=== PATIENT | female | born 1975 ===

== ENCOUNTER → 2021-01-10 10:42 | Outpatient (BNVA) | payer OTHER, SELFPAY | PROVIDERS: PCP Internal Medicine; Visit Provider Hospitalist | DX: J45.40 Moderate persistent asthma, uncomplicated (principal); R07.9 Chest pain, unspecified | CPT/HCPCS: 99202 ==

== ENCOUNTER → 2021-02-28 14:53 | Outpatient (BNVA) | payer OTHER, SELFPAY | PROVIDERS: PCP Internal Medicine; Visit Provider Hospitalist | DX: J45.40 Moderate persistent asthma, uncomplicated (principal); R07.9 Chest pain, unspecified | CPT/HCPCS: 99212 ==

== ENCOUNTER 2021-07-01 13:31 | Outpatient (REF) | payer OTHER, SELFPAY ==
[2021-07-01 15:40] LABS: MANUAL DIFF FLAG NO
[2021-07-01 15:47] LABS: Basophils Percent Auto 0.2 % (0-2); Eosinophils Absolute Auto 0.3 X10*3/uL (0.0-0.4); Eosinophils Percent Auto 2.6 % (0-4); Hematocrit 32.4 % (37-47); Hemoglobin 9.3 g/dl (12.0-16.0); Imm Gran Abs Auto 0.03 X10*3/uL (0.00-0.03); Imm Gran Pct Auto 0.3 % (0.0-0.4); Lymphocytes Absolute Auto 2.5 X10*3/uL (1.2-4.9); Lymphocytes Percent Auto 26.2 % (20-40); Mean Corpuscular HGB Conc 28.7 g/dl (31.0-35.0); Mean Corpuscular Hemoglobin 21.4 pg (27.0-33.0); Mean Corpuscular Volume 74.7 fL (80-98); Mean Platelet Volume 9.5 fL (9.4-12.3); Monocytes Absolute Auto 0.4 X10*3/uL (0.1-1.2); Monocytes Percent Auto 4.2 % (2-11); Neutrophils Absolute Auto 6.3 X10*3/uL (2.0-8.3); Neutrophils Percent Auto 66.5 % (45-73); Platelet Count 516 X10*3/uL (160-400); Red Blood Count 4.34 X10*6/uL (4.20-5.50); Red Cell Distribution Width 16.2 % (11.0-16.0); White Blood Count 9.5 X10*3/uL (4.8-10.8)
[2021-07-01 15:56] LABS: D Dimer < 200 NG/ML
[2021-07-01 16:11] LABS: Anion Gap 13 (12-20); Blood Urea Nitrogen 11 mg/dL (9-16); Calcium 9.1 mg/dL (8.4-10.2); Carbon Dioxide 20 mmol/L (22-29); Chloride 110 mmol/L (96-108); Estimated Glomerular Filt Rate > 60; Glucose Random 94 mg/dL (60-115); Potassium 4.2 mmol/L (3.3-5.1); Sodium 139 mmol/L (135-145)
[2021-07-01 16:45] LABS: Erythrocyte Sedimentation Rate 23 MM/HR (0-20)
[2021-07-03 13:06] LABS: Anti Nuclear Antibody Screen NEGATIVE (NEGATIVE)
[2021-07-04 00:47] LABS: Cyclic Citrullinated Peptide <16 UNITS
[2021-07-09 04:07] LABS: Angiotensin Converting Enzyme 15 U/L (9-67)
== END 2021-07-01 13:32 | disposition home or self-care (01) ==
LOC: HO.LAB 13:31
PROVIDERS: PCP Internal Medicine; Visit Provider Hospitalist
DX: R07.9 Chest pain, unspecified (principal); J45.40 Moderate persistent asthma, uncomplicated; R09.1 Pleurisy
CPT/HCPCS: 36415; 80048; 82164; 82785; 85025; 85379; 85652; 86003; 86038; 86039; 86200; 99212

== ENCOUNTER → 2021-08-14 13:29 | Outpatient (BNVA) | payer OTHER, SELFPAY | PROVIDERS: PCP Internal Medicine; Visit Provider Hospitalist | DX: J45.40 Moderate persistent asthma, uncomplicated (principal); R09.1 Pleurisy; R07.9 Chest pain, unspecified | CPT/HCPCS: 99212 ==

== ENCOUNTER 2021-09-29 10:33 | Outpatient (REF) | payer OTHER, SELFPAY | END 2021-09-29 10:34 | disposition home or self-care (01) | LOC: HO.MDS 10:33 | PROVIDERS: PCP Internal Medicine; Visit Provider Hospitalist | DX: J45.50 Severe persistent asthma, uncomplicated (principal) | CPT/HCPCS: 96372; J2357 ==

== ENCOUNTER → 2021-11-13 13:35 | Outpatient (BNVA) | payer OTHER, SELFPAY | PROVIDERS: PCP Internal Medicine; Visit Provider Hospitalist | DX: J45.40 Moderate persistent asthma, uncomplicated (principal); R07.9 Chest pain, unspecified; Z79.899 Other long term (current) drug therapy | CPT/HCPCS: 99212 ==

== ENCOUNTER → 2022-08-21 09:04 | Outpatient (BNVA) | payer OTHER, SELFPAY | PROVIDERS: PCP Internal Medicine; Visit Provider Hospitalist | DX: J45.41 Moderate persistent asthma with (acute) exacerbation (principal); J40 Bronchitis, not specified as acute or chronic; R05.9 Cough, unspecified; R07.9 Chest pain, unspecified | CPT/HCPCS: 99212 ==

== ENCOUNTER 2023-03-30 09:53 | Outpatient (REF) | payer OTHER, SELFPAY ==
[2023-03-30 11:12] LABS: MANUAL DIFF FLAG NO
[2023-03-30 11:45] LABS: Basophils Percent Auto 0.5 % (0-2); Eosinophils Absolute Auto 0.3 X10*3/uL (0.0-0.4); Eosinophils Percent Auto 3.2 % (0-4); Hematocrit 32.6 % (37.0-47.0); Hemoglobin 8.7 g/dl (12.0-16.0); Imm Gran Abs Auto 0.03 X10*3/uL (0.00-0.03); Imm Gran Pct Auto 0.4 % (0.0-0.4); Lymphocytes Absolute Auto 2.4 X10*3/uL (1.2-4.9); Lymphocytes Percent Auto 29.7 % (20-40); Mean Corpuscular HGB Conc 26.7 g/dl (31.0-35.0); Mean Corpuscular Hemoglobin 18.3 pg (27.0-33.0); Mean Corpuscular Volume 68.6 fL (80.0-98.0); Mean Platelet Volume 9.7 fL (9.4-12.3); Monocytes Absolute Auto 0.5 X10*3/uL (0.1-1.2); Monocytes Percent Auto 6.5 % (2-11); Neutrophils Absolute Auto 4.8 x10*3/uL (2.0-8.3); Neutrophils Percent Auto 59.7 % (45-73); Platelet Count 565 X10*3/uL (160-400); Red Blood Count 4.75 X10*6/uL (4.20-5.50); Red Cell Distribution Width 17.7 % (11.0-16.0)
[2023-03-30 12:25] LABS: Erythrocyte Sedimentation Rate 14 MM/HR (0-20)
[2023-03-30 12:46] LABS: Anion Gap 15 (12-20); Blood Urea Nitrogen 9 mg/dL (9-16); Calcium 9.8 mg/dL (8.4-10.2); Carbon Dioxide 21 mmol/L (22-29); Chloride 107 mmol/L (96-108); Estimated Glomerular Filt Rate > 60; Glucose Random 80 mg/dL (60-115); Potassium 4.5 mmol/L (3.3-5.1); Sodium 138 mmol/L (135-145)
[2023-04-02 03:09] LABS: Immunoglobulin E 395 kU/L (<OR=114)
== END 2023-03-30 09:54 | disposition home or self-care (01) ==
LOC: HO.LAB 09:53
PROVIDERS: PCP Internal Medicine; Visit Provider Hospitalist
DX: J45.41 Moderate persistent asthma with (acute) exacerbation (principal); J40 Bronchitis, not specified as acute or chronic; R05.9 Cough, unspecified; R07.9 Chest pain, unspecified
CPT/HCPCS: 36415; 80048; 82785; 85025; 85652; 99212

== ENCOUNTER 2023-05-17 10:18 | Outpatient (REF) | payer OTHER, SELFPAY ==
--- NOTE | 2023-05-17 10:55 | PFT_ITS ---
FLOWS: 1. FEV1 71% of predicted at 1.85 L. 2. FVC 66% of predicted at 2.11 L. 3. FEV1 to FVC ratio of 0.88. 4. No bronchodilator response. LUNG VOLUMES: 1. Total lung capacity 69% of predicted at 3.21 L. 2. Residual volume 71% of predicted at 1.11 L. 3. Slow vital capacity 68% of predicted at 2.09 L. 4. Expiratory reserve volume 18% of predicted at 0.18 L. 5. Diffusion capacity is mildly decreased, diffusion capacity corrects to normal after adjustment for alveolar ventilation. IMPRESSION: Moderate restrictive ventilatory defect with no bronchodilator response. Decreased expiratory reserve volume suggests extrathoracic restriction, likely secondary to abdominal obesity. MD FRANCESCO Ribeiro/MODL / [phone]
== END 2023-05-17 10:19 | disposition home or self-care (01) ==
LOC: HO.RESP 10:18
PROVIDERS: PCP Internal Medicine; Visit Provider Hospitalist
DX: J45.41 Moderate persistent asthma with (acute) exacerbation (principal)
CPT/HCPCS: 94010; 94727; 94729

== ENCOUNTER → 2023-05-17 10:55 | Outpatient (BNV) | payer OTHER, SELFPAY | PROVIDERS: PCP Internal Medicine; Visit Provider Internal Medicine Pulmonary Disease | DX: J45.909 Unspecified asthma, uncomplicated (principal) | CPT/HCPCS: 94060; 94727; 94729 ==

== ENCOUNTER 2023-09-10 11:04 | Outpatient (AMB) | payer OTHER, SELFPAY ==
--- NOTE | 2023-09-10 11:12 | MHC.OFFVIS ---
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 Apparently she had been doing well on the current respiratory regimen. However, started developing worsening shortness of breath in addition to cough along with wheezing. Finally she started developing some chest discomfort substernal in nature and was evaluated at the [facility] ER. There she was COVID tested. His test came back negative and she was discharged from the ER without any intervention. The chest pain seems to be doing a little better though she still has it. She denies any trauma to the chest. She does have reflux symptoms. We did talk about the importance of the reflux diet. In the meantime will do blood work in addition to a chest x-ray to further address his chest discomfort and her ongoing asthma symptoms. 03/30/2023 the patient is here for a pulmonary follow-up visit. The patient still has worsening respiratory symptoms. She has a hard time leaving her house because of significant asthma asthma and allergy symptoms. The patient has been using her rescue inhaler multiple times a day and has been using her maintenance medicine although she ran out. The patient during the last visit also need breathing treatments because of significant wheezing. We had talked about biologic therapy. The patient is a great candidate for Xolair with an elevated IgE level and significant allergies. However after taking a dose or 2 the patient then did not follow up with it. Will try to get her back on Xolair but hopefully with home administration which she can do her own injections at home and have better compliance. Will try to minimize the need for prednisone. Will have her undergo blood work today in order to get her back in Xolair. The patient does have significant allergies specially to trees and other environmental exposures. Will go ahead and make sure she has all her medications available in optimize her respiratory therapy to [facility] to make sure that she is taking her medications with the best compliance. The patient also needs an EpiPen. She had a food allergy reaction that ended up in going to the ER. The patient did not need appy at that point. Will make sure she has an EpiPen 09/10/2023 the patient is here for a pulmonary follow-up visit. The patient has been having significant asthma symptoms. Positive sick contacts. The patient has been having to use her nebulized therapy 4 to 6 times a day. for some reason the patient was not receiving her Xolair injections and also she had not had any refills on her medications for her asthma so therefore she had been relying on her rescue inhaler. I will make sure to send all her refills to the pharmacy. Also spoke to our nurse so we can look into why she has not been getting the Xolair. The patient has pretty severe asthma and she understands that she needs to continue with good adherence on therapy otherwise she is going to require additional prednisone. She will require prednisone at this time of send a taper. If the patient is no better she is to call the office for an earlier assessment otherwise follow-up in 3-4 months. [facility] Medical History (Updated 09/12/23 @ 20:21 by Sanchez Bueno MD) COVID-19 Pleuritis Chest pain Asthma Social History Patient Tobacco Use Status: Never used Tobacco Review of Systems Const Denies fever(s) and Denies night sweats ENT Denies change in voice, Denies lip swelling, Denies mouth pain, Reports nasal congestion, Reports nasal discharge, Reports sore throat and Denies tongue swelling Card Reports chest pain, Reports dyspnea and Reports dyspnea on exertion Resp Reports chest congestion, Reports cough, Reports pain on inspiration, Reports pain with cough, Reports dyspnea, Reports dyspnea on exertion and Reports wheezing GI Denies abdominal pain and Reports heartburn Musc Denies no additional complaints Neuro Denies Neuro-related abnormal movements Psych Denies no additional complaints Stephan/Lymph Denies easy bleeding and Denies lymphadenopathy Aller/Immun Denies lip swelling, Denies tongue swelling and Reports wheezing Physical Exam Vital Signs: Last Vital Signs Pulse 95 09/10/23 11:13 BP 132/70 09/10/23 11:13 Pulse Ox 100 09/10/23 11:13 Oxygen Delivery Method Room Air 09/10/23 11:13 BMI result Body Mass Index 32.9 Const General: alert Neck Neck: Yes normal visual inspection, Yes full ROM and Yes no lymphadenopathy Chest Chest palpation & inspection: abnormal inspection of the chest, localized rib tenderness with anteroposterior compression and tenderness rib ( patient has left-sided discomfort which appeared to be intercostal a day level of the mid chest area) Resp Auscultation: rhonchi, wheezes and diminished lung sounds Cardio Rate: regular rate Rhythm: regular rhythm Heart sounds: S1 normal heart sound present and S2 normal heart sound present GI Palpation (GI): Soft to palpation and nontender Auscultation: normal bowel sounds Skin General skin exam: rashes and/or lesions noted Assessment & Plan Assessment & Plan (1) Asthma: Code(s): J45.909 - Unspecified asthma, uncomplicated Qualifiers: Asthma complication type: with acute exacerbation Asthma persistence: persistent Asthma severity: severe Qualified Code(s): J45.51 - Severe persistent asthma with (acute) exacerbation (2) Bronchitis: Code(s): J40 - Bronchitis, not specified as acute or chronic (3) Cough: Code(s): R05.9 - Cough, unspecified Qualifiers: Cough type: chronic Qualified Code(s): R05.3 - Chronic cough (4) Chest pain: Comment: musculoskeletal discomfort versus hyperparesthesias on the right side. His symptoms are reproducible Code(s): R07.9 - Chest pain, unspecified Qualifiers: Chest pain type: unspecified Qualified Code(s): R07.9 - Chest pain, unspecified Plan Continue Nebs every 4 hours as needed start Prednisone taper start Doxycycline restart Trelegy 200 daily ELTON/singulair continue Claritin restart Xolair, home Benzonates as needed F/U 3-4 months Orders: Orders XR chest 2V 09/10/23 J45.909 - Unspecified asthma, uncomplicated Medications: New prednisone PO daily; Take 6 tabs daily x 3 days, then 5 tabs x 3 days, then 4 tabs x 3 days, then 3 tabs x 3 days, then 2 tabs daily x 3 days, then 1 tab x 3 days to complete. 18 days 63 tabs 0RF benzonatate 200 mg PO BID 30 days PRN 60 caps 4RF cough doxycycline hyclate 100 mg PO BID 10 days 20 caps 0RF Refilled albuterol sulfate 2.5 mg (3 mL) inhalation Q6H 30 days PRN 180 mL 11RF shortness of breath or wheezing albuterol sulfate 90 mcg/actuation (Ventolin HFA) 2 puffs inhalation QID 30 days PRN 18 grams 11RF shortness of breath or wheezing wushlymxzmk-clmcjsdzw-hcufsubd 200-62.5-25 mcg (Trelegy Ellipta) 1 inh inhalation DAILY 30 days 60 ea 12RF montelukast 10 mg PO DAILY 30 days 30 tabs 11RF J45.909 - Unspecified asthma, uncomplicated Coding Level of Care Code Est Pt Level 4 (23169) Diagnoses Severe persistent asthma with acute exacerbation J45.51 Asthma complication type: with acute exacerbation Asthma persistence: persistent Asthma severity: severe Bronchitis J40 Chronic cough R05.3 Cough type: chronic Chest pain, unspecified type R07.9 Chest pain type: unspecified Time Spent (min) 17
[2023-09-10 11:13] VITALS: BP 132/70; PULSE 95; O2SAT 100; BMI 32.9
== END 2023-09-10 12:01 | disposition home or self-care (01) ==
PROVIDERS: PCP Internal Medicine; Visit Provider Hospitalist
DX: J45.51 Severe persistent asthma with (acute) exacerbation (principal); J40 Bronchitis, not specified as acute or chronic; R05.3 Chronic cough; R07.9 Chest pain, unspecified
CPT/HCPCS: 99214

== ENCOUNTER → 2023-09-10 11:04 | Outpatient (BNVA) | payer OTHER, SELFPAY | PROVIDERS: PCP Internal Medicine; Visit Provider Hospitalist | DX: J45.51 Severe persistent asthma with (acute) exacerbation (principal); J40 Bronchitis, not specified as acute or chronic; R05.3 Chronic cough; R07.9 Chest pain, unspecified | CPT/HCPCS: 99212 ==

== ENCOUNTER 2024-05-12 10:23 | Outpatient (AMB) | payer OTHER, SELFPAY ==
--- NOTE | 2024-05-12 10:41 | MHC.OFFVIS ---
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 Apparently she had been doing well on the current respiratory regimen. However, started developing worsening shortness of breath in addition to cough along with wheezing. Finally she started developing some chest discomfort substernal in nature and was evaluated at the [facility] ER. There she was COVID tested. His test came back negative and she was discharged from the ER without any intervention. The chest pain seems to be doing a little better though she still has it. She denies any trauma to the chest. She does have reflux symptoms. We did talk about the importance of the reflux diet. In the meantime will do blood work in addition to a chest x-ray to further address his chest discomfort and her ongoing asthma symptoms. 03/30/2023 the patient is here for a pulmonary follow-up visit. The patient still has worsening respiratory symptoms. She has a hard time leaving her house because of significant asthma asthma and allergy symptoms. The patient has been using her rescue inhaler multiple times a day and has been using her maintenance medicine although she ran out. The patient during the last visit also need breathing treatments because of significant wheezing. We had talked about biologic therapy. The patient is a great candidate for Xolair with an elevated IgE level and significant allergies. However after taking a dose or 2 the patient then did not follow up with it. Will try to get her back on Xolair but hopefully with home administration which she can do her own injections at home and have better compliance. Will try to minimize the need for prednisone. Will have her undergo blood work today in order to get her back in Xolair. The patient does have significant allergies specially to trees and other environmental exposures. Will go ahead and make sure she has all her medications available in optimize her respiratory therapy to [facility] to make sure that she is taking her medications with the best compliance. The patient also needs an EpiPen. She had a food allergy reaction that ended up in going to the ER. The patient did not need appy at that point. Will make sure she has an EpiPen 09/10/2023 the patient is here for a pulmonary follow-up visit. The patient has been having significant asthma symptoms. Positive sick contacts. The patient has been having to use her nebulized therapy 4 to 6 times a day. for some reason the patient was not receiving her Xolair injections and also she had not had any refills on her medications for her asthma so therefore she had been relying on her rescue inhaler. I will make sure to send all her refills to the pharmacy. Also spoke to our nurse so we can look into why she has not been getting the Xolair. The patient has pretty severe asthma and she understands that she needs to continue with good adherence on therapy otherwise she is going to require additional prednisone. She will require prednisone at this time of send a taper. If the patient is no better she is to call the office for an earlier assessment otherwise follow-up in 3-4 months. 05/12/2024 the patient is here for sick visit. She has been sick now for about a week with her asthma. Has had significant chest tightness and wheezing. She does not seem prednisone home she started taking it. Although she is still having significant difficulty breathing. She is coughing although difficult to expectorate. Moderate severity. On exam she does have significant wheezing. I did give her a breathing treatment in the office with only partial improvement. The patient did receive Solu-Medrol 125 mg IM x1. Hopefully the symptoms start subsided. I will make sure to send her antibiotics and prednisone to the pharmacy. She will continue to use the nebulizer every 4 hours. If her condition worsens she will need to get evaluated in the ER. However, if she is no better she needs to call the office. In the meantime she does continue with Xolair. Xolair injections have been helpful. Not clear if this is an infectious process. If this more allergic in maybe she has not responded completely to the Xolair we need to consider other potential biologic therapies. [facility] Medical History (Updated 09/12/23 @ 20:21 by Sanchez Bueno MD) COVID-19 Pleuritis Chest pain Asthma Social History Patient Tobacco Use Status: Never used Tobacco Review of Systems Const Denies fever(s) and Denies night sweats ENT Denies change in voice, Denies lip swelling, Denies mouth pain, Reports nasal congestion, Reports nasal discharge, Reports sore throat and Denies tongue swelling Card Reports chest pain, Reports dyspnea and Reports dyspnea on exertion Resp Reports chest congestion, Reports cough, Reports pain on inspiration, Reports pain with cough, Reports dyspnea, Reports dyspnea on exertion and Reports wheezing GI Denies abdominal pain and Reports heartburn Musc Denies no additional complaints Neuro Denies Neuro-related abnormal movements Psych Denies no additional complaints Stephan/Lymph Denies easy bleeding and Denies lymphadenopathy Aller/Immun Denies lip swelling, Denies tongue swelling and Reports wheezing Physical Exam Vital Signs: Last Vital Signs Pulse 94 05/12/24 10:42 Pulse Ox 99 05/12/24 10:42 Oxygen Delivery Method Room Air 05/12/24 10:42 BMI result Body Mass Index 32.1 Const General: alert Neck Neck: Yes normal visual inspection, Yes full ROM and Yes no lymphadenopathy Chest Chest palpation & inspection: abnormal inspection of the chest, localized rib tenderness with anteroposterior compression and tenderness rib ( patient has left-sided discomfort which appeared to be intercostal a day level of the mid chest area) Resp Effort & Inspection: prolonged expiratory phase Auscultation: rhonchi, wheezes and diminished lung sounds Cardio Rate: regular rate Rhythm: regular rhythm Heart sounds: S1 normal heart sound present and S2 normal heart sound present GI Palpation (GI): Soft to palpation and nontender Auscultation: normal bowel sounds Skin General skin exam: rashes and/or lesions noted Office Procedures Nebulizer Treatment Nebulizer Treatment [id number] RX initial, or Nebulizer Subsequent Treatment Office Meds methylprednisolone sod suc(PF) 125 mg/2 mL solution for injection Performing Provider: Sanchez Bueno MD Performing Location: [facility] Pul[facility]ology [facility] Administered by: Billie Montez LPN on 05/12/24 11:10 Dose Route Admin Location Dispensed Lot Number Expiration Date [facility] [employer] 125 mg IM R buttoc 2 ea [id number] 06/10/26 5075-4049-08 [employer] Comments: 1 injection of 125 mg given in R buttock ipratropium 0.5 mg-albuterol 3 mg (2.5 mg base)/3 mL nebulization soln Performing Provider: Sanchez Bueno MD Performing Location: [facility] Pul[facility] Administered by: Billie Montez LPN on 05/12/24 11:10 Dose Route Admin Location Dispensed Lot Number Expiration Date [facility] [employer] 3 mL inhalation 3 mL [id number] 02/07/26 [id number] [facility] Assessment & Plan Assessment & Plan (1) Asthma: Code(s): J45.909 - Unspecified asthma, uncomplicated Category: Medical Qualifiers: Asthma complication type: with acute exacerbation Asthma persistence: persistent Asthma severity: severe Qualified Code(s): J45.51 - Severe persistent asthma with (acute) exacerbation (2) Bronchitis: Code(s): J40 - Bronchitis, not specified as acute or chronic Category: Medical (3) Cough: Code(s): R05.9 - Cough, unspecified Category: Medical Qualifiers: Cough type: chronic Qualified Code(s): R05.3 - Chronic cough (4) Chest pain: Comment: musculoskeletal discomfort versus hyperparesthesias on the right side. His symptoms are reproducible Code(s): R07.9 - Chest pain, unspecified Category: Medical Qualifiers: Chest pain type: unspecified Qualified Code(s): R07.9 - Chest pain, unspecified Plan Continue Nebs every 4 hours as needed start Prednisone taper start Augmentin conitunue Trelegy 200 daily ELTON/singulair continue Claritin conitnue Xolair, home epipen Benzonates as needed F/U 3-4 months Orders: Orders AMB Methylprednisolone Sod Succ Injection 05/12/24 J45.51 - Severe persistent asthma with (acute) exacerbation AMB Nebulizer Treatment 05/12/24 J45.51 - Severe persistent asthma with (acute) exacerbation Medications: New prednisone PO daily; Take 6 tabs daily x 3 days, then 5 tabs x 3 days, then 4 tabs x 3 days, then 3 tabs x 3 days, then 2 tabs daily x 3 days, then 1 tab x 3 days to complete. 63 tabs 0RF 18 days amoxicillin-pot clavulanate 875-125 mg 1 tab PO BID 20 tabs 0RF 10 days Changed From Ventolin HFA 90 mcg/actuation (albuterol sulfate) 2 puffs inhalation Q6H PRN 18 ea 0RF for wheezing NS J45.909 - Unspecified asthma, uncomplicated To Ventolin HFA 90 mcg/actuation (albuterol sulfate) 2 puffs inhalation Q6H PRN 1 ea 11RF for wheezing 30 days NS J45.909 - Unspecified asthma, uncomplicated Refilled montelukast 10 mg PO DAILY 30 tabs 11RF 30 days J45.909 - Unspecified asthma, uncomplicated epinephrine (EpiPen 2-Ryan) for 2 doses 0.3 mg (0.3 mL) IM Q10M PRN 2 ea 6RF anaphylaxis 30 days J45.40 - Moderate persistent asthma, uncomplicated albuterol sulfate 2.5 mg (3 mL) inhalation Q6H PRN 180 mL 11RF shortness of breath or wheezing 30 days epybyrameow-xlptdmndw-iyjyymua 200-62.5-25 mcg (Trelegy Ellipta) 1 inh inhalation DAILY 60 ea 12RF 30 days Coding Level of Care Code Est Pt Level 4 (87164) Diagnoses Severe persistent asthma with acute exacerbation J45.51 Asthma complication type: with acute exacerbation Asthma persistence: persistent Asthma severity: severe Bronchitis J40 Chronic cough R05.3 Cough type: chronic Chest pain, unspecified type R07.9 Chest pain type: unspecified CPT Codes Nebulizer Treatment - Nebulizer Treatment, initial or subsequent: [id number]/[id number] RX initial, or Nebulizer Subsequent Treatment ([id number]) Time Spent (min) 17
[2024-05-12 10:42] VITALS: PULSE 94; O2SAT 99; BMI 32.1
== END 2024-05-12 11:06 | disposition home or self-care (01) ==
PROVIDERS: PCP Internal Medicine; Visit Provider Hospitalist
DX: J45.51 Severe persistent asthma with (acute) exacerbation (principal); J40 Bronchitis, not specified as acute or chronic; R05.3 Chronic cough; R07.9 Chest pain, unspecified
CPT/HCPCS: 99214

== ENCOUNTER → 2024-05-12 10:23 | Outpatient (BNVA) | payer OTHER, SELFPAY | PROVIDERS: PCP Internal Medicine; Visit Provider Hospitalist | DX: J45.51 Severe persistent asthma with (acute) exacerbation (principal); J40 Bronchitis, not specified as acute or chronic; R05.3 Chronic cough; R07.9 Chest pain, unspecified | CPT/HCPCS: 94640; 96372; 99212; J2919 ==

== ENCOUNTER 2024-08-25 10:22 | Outpatient (REF) | payer OTHER, SELFPAY ==
[2024-08-25 11:17] LABS: MANUAL DIFF FLAG NO
[2024-08-25 11:35] LABS: Basophils Absolute Auto 0.1 X10*3/uL (0.0-0.2); Basophils Percent Auto 0.6 % (0-2); Eosinophils Absolute Auto 0.7 X10*3/uL (0.0-0.4); Eosinophils Percent Auto 7.9 % (0-4); Hematocrit 35.3 % (37.0-47.0); Hemoglobin 9.8 g/dl (12.0-16.0); Imm Gran Abs Auto 0.02 X10*3/uL (0.00-0.03); Imm Gran Pct Auto 0.2 % (0.0-0.4); Lymphocytes Absolute Auto 2.3 X10*3/uL (1.2-4.9); Lymphocytes Percent Auto 26.8 % (20-40); Mean Corpuscular HGB Conc 27.8 g/dl (31.0-35.0); Mean Corpuscular Hemoglobin 19.5 pg (27.0-33.0); Mean Corpuscular Volume 70.3 fL (80.0-98.0); Mean Platelet Volume 9.5 fL (9.4-12.3); Monocytes Absolute Auto 0.5 X10*3/uL (0.1-1.2); Monocytes Percent Auto 5.6 % (2-11); Neutrophils Absolute Auto 4.9 x10*3/uL (2.0-8.3); Neutrophils Percent Auto 58.9 % (45-73); Platelet Count 585 X10*3/uL (160-400); Red Blood Count 5.02 X10*6/uL (4.20-5.50); Red Cell Distribution Width 17.2 % (11.0-16.0); White Blood Count 8.4 X10*3/uL (4.8-10.8)
[2024-08-25 12:24] LABS: Erythrocyte Sedimentation Rate 10 MM/HR (0-20)
[2024-08-28 08:04] LABS: IgA 249 mg/dL (47-310); IgG 1373 mg/dL (600-1640); IgM 56 mg/dL (50-300)
[2024-08-29 21:24] LABS: Immunoglobulin E 439 kU/L (<OR=114)
[2024-09-02 13:14] LABS: Asperg fumigatus Precip Abs NEGATIVE (NEGATIVE); Micropoly faeni Abs NEGATIVE (NEGATIVE); Pigeon serum Abs NEGATIVE (NEGATIVE); Saccharo pora viridis Abs NEGATIVE (NEGATIVE); Thermo candidus Abs NEGATIVE (NEGATIVE); Thermoa vulgaris #1 NEGATIVE (NEGATIVE)
== END 2024-08-25 10:23 | disposition home or self-care (01) ==
LOC: HO.LAB 10:22
PROVIDERS: PCP Internal Medicine; Visit Provider Hospitalist
DX: J45.51 Severe persistent asthma with (acute) exacerbation (principal); J40 Bronchitis, not specified as acute or chronic; R09.1 Pleurisy; R91.8 Other nonspecific abnormal finding of lung field; R05.3 Chronic cough; R07.9 Chest pain, unspecified
CPT/HCPCS: 36415; 82784; 82785; 85025; 85652; 86331; 86606; 86609; 99212

== ENCOUNTER 2024-08-25 10:22 | Outpatient (AMB) | payer OTHER, SELFPAY ==
--- NOTE | 2024-08-25 10:24 | A.OFFVIS_ITS ---
Vital Signs 08/25/24 10:25 Height 5 ft 1 in Weight 170 lb 13.732 oz BMI 32.3 BP 122/78 Blood Pressure Location Rt brachial Position Sitting Pulse 91 Pulse Source Doppler Pulse Oximetry (%) 100 Oxygen Delivery Method Room Air Intake Visit Reasons: asthma Allergies acetaminophen [From Percocet] Allergy (Severe, Verified 05/12/24 10:43) Closedd Trachea aspirin Allergy (Severe, Verified 05/12/24 10:43) Swelling ibuprofen [From Motrin] Allergy (Severe, Verified 05/12/24 10:43) Swelling oxycodone [From Percocet] Allergy (Severe, Verified 05/12/24 10:43) Closedd Trachea Sulfa (Sulfonamide Antibiotics) Allergy (Severe, Verified 05/12/24 10:43) Swelling HPI Comments Details: The patient is a 49-year-old woman with a known history of asthma in addition to allergic rhinitis. Apparently she had been doing well on the current respiratory regimen. However, started developing worsening shortness of breath in addition to cough along with wheezing. Finally she started developing some chest discomfort substernal in nature and was evaluated at the [facility] ER. There she was COVID tested. His test came back negative and she was discharged from the ER without any intervention. The chest pain seems to be doing a little better though she still has it. She denies any trauma to the chest. She does have reflux symptoms. We did talk about the importance of the reflux diet. In the meantime will do blood work in addition to a chest x-ray to further address his chest discomfort and her ongoing asthma symptoms. 03/30/2023 the patient is here for a pulmonary follow-up visit. The patient still has worsening respiratory symptoms. She has a hard time leaving her house because of significant asthma asthma and allergy symptoms. The patient has been using her rescue inhaler multiple times a day and has been using her maintenance medicine although she ran out. The patient during the last visit also need breathing treatments because of significant wheezing. We had talked about biologic therapy. The patient is a great candidate for Xolair with an elevated IgE level and significant allergies. However after taking a dose or 2 the patient then did not follow up with it. Will try to get her back on Xolair but hopefully with home administration which she can do her own injections at home and have better compliance. Will try to minimize the need for prednisone. Will have her undergo blood work today in order to get her back in Xolair. The patient does have significant allergies specially to trees and other environmental exposures. Will go ahead and make sure she has all her medications available in optimize her respiratory therapy to [facility] to make sure that she is taking her medications with the best compliance. The patient also needs an EpiPen. She had a food allergy reaction that ended up in going to the ER. The patient did not need appy at that point. Will make sure she has an EpiPen 09/10/2023 the patient is here for a pulmonary follow-up visit. The patient has been having significant asthma symptoms. Positive sick contacts. The patient has been having to use her nebulized therapy 4 to 6 times a day. for some reason the patient was not receiving her Xolair injections and also she had not had any refills on her medications for her asthma so therefore she had been relying on her rescue inhaler. I will make sure to send all her refills to the pharmacy. Also spoke to our nurse so we can look into why she has not been getting the Xolair. The patient has pretty severe asthma and she understands that she needs to continue with good adherence on therapy otherwise she is going to require additional prednisone. She will require prednisone at this time of send a taper. If the patient is no better she is to call the office for an earlier assessment otherwise follow-up in 3-4 months. 05/12/2024 the patient is here for sick visit. She has been sick now for about a week with her asthma. Has had significant chest tightness and wheezing. She does not seem prednisone home she started taking it. Although she is still having significant difficulty breathing. She is coughing although difficult to expectorate. Moderate severity. On exam she does have significant wheezing. I did give her a breathing treatment in the office with only partial improvement. The patient did receive Solu-Medrol 125 mg IM x1. Hopefully the symptoms start subsided. I will make sure to send her antibiotics and prednisone to the pharmacy. She will continue to use the nebulizer every 4 hours. If her condition worsens she will need to get evaluated in the ER. However, if she is no better she needs to call the office. In the meantime she does continue with Xolair. Xolair injections have been helpful. Not clear if this is an infectious process. If this more allergic in maybe she has not responded completely to the Xolair we need to consider other potential biologic therapies. 08/25/2024 the patient is here for a pulmonary follow-up visit. She still struggling with her asthma. The patient has been having significant wheezing. She had to take additional prednisone a few days ago. She found some left over at that time. She has been having some issues at the pharmacy with her prescriptions. I will make sure to send all the scripts to the pharmacy. She has been on Xolair. Although the Xolair does not seem to be helping her prednisone needs that she is requiring prednisone on a regular basis. Will go ahead and request additional blood work including a CBC with differential hypersensitivity panel immune system and also her IgE levels. At this point she has failed Xolair will go ahead and start her on Dupixent. She does have atopic dermatitis and also significant chronic rhinitis so I believe the Dupixent would be more effective in controlling her asthma. In the meantime I will send a additional prednisone antibiotics to the pharmacy for her asthmatic bronchitis flare up. [facility] Medical History (Updated 09/12/23 @ 20:21 by Sanchez Bueno MD) COVID-19 Pleuritis Chest pain Asthma Social History Patient Tobacco Use Status: Never used Tobacco Review of Systems Const Denies fever(s) and Denies night sweats ENT Denies change in voice, Denies lip swelling, Denies mouth pain, Reports nasal congestion, Reports nasal discharge, Reports sore throat and Denies tongue swelling Card Denies chest pain, Reports dyspnea and Reports dyspnea on exertion Resp Reports chest congestion, Reports cough, Reports dyspnea, Reports dyspnea on exertion and Reports wheezing GI Denies abdominal pain and Reports heartburn Musc Denies no additional complaints Neuro Denies Neuro-related abnormal movements Psych Denies no additional complaints Stephan/Lymph Denies easy bleeding and Denies lymphadenopathy Aller/Immun Denies lip swelling, Denies tongue swelling and Reports wheezing Physical Exam Vital Signs: Last Vital Signs Pulse 91 08/25/24 10:25 BP 122/78 08/25/24 10:25 Pulse Ox 100 08/25/24 10:25 Oxygen Delivery Method Room Air 08/25/24 10:25 BMI result Body Mass Index 32.3 Const General: alert Neck Neck: Yes normal visual inspection, Yes full ROM and Yes no lymphadenopathy Chest Chest palpation & inspection: normal inspection of the chest Resp Effort & Inspection: prolonged expiratory phase Auscultation: rhonchi, wheezes and diminished lung sounds Cardio Rate: regular rate Rhythm: regular rhythm Heart sounds: S1 normal heart sound present and S2 normal heart sound present GI Palpation (GI): Soft to palpation and nontender Auscultation: normal bowel sounds Skin General skin exam: rashes and/or lesions noted Assessment & Plan Assessment & Plan (1) Asthma: Code(s): J45.909 - Unspecified asthma, uncomplicated Category: Medical Qualifiers: Asthma complication type: with acute exacerbation Asthma persistence: persistent Asthma severity: severe Qualified Code(s): J45.51 - Severe persistent asthma with (acute) exacerbation (2) Bronchitis: Code(s): J40 - Bronchitis, not specified as acute or chronic Category: Medical (3) Cough: Code(s): R05.9 - Cough, unspecified Category: Medical Qualifiers: Cough type: chronic Qualified Code(s): R05.3 - Chronic cough (4) Chest pain: Comment: musculoskeletal discomfort versus hyperparesthesias on the right side. His symptoms are reproducible Code(s): R07.9 - Chest pain, unspecified Category: Medical Qualifiers: Chest pain type: unspecified Qualified Code(s): R07.9 - Chest pain, unspecified Plan Continue Nebs every 4 hours as needed start Prednisone taper start Azithromycin conitunue Trelegy 200 daily ELTON/singulair continue Claritin stop Xolair due to persistent asthma symptoms. Recommend changing Xolair to Dupixent epipen bloodwork Benzonates as needed F/U 3-4 months Orders: Orders Complete Blood Count Auto Diff 08/25/24 J45.51 - Severe persistent asthma with (acute) exacerbation Hypersensitive Pneumonitis Prf 08/25/24 J40 - Bronchitis, not specified as acute or chronic, J45.51 - Severe persistent asthma with (acute) exacerbation, R09.1 - Pleurisy, R91.8 - Other nonspecific abnormal finding of lung field Immunoglobulins,IgG IgA IgM 08/25/24 J40 - Bronchitis, not specified as acute or chronic, J45.51 - Severe persistent asthma with (acute) exacerbation, R09.1 - Pleurisy Immunoglobulin E 08/25/24 J45.51 - Severe persistent asthma with (acute) exacerbation Erythrocyte Sedimentation Rate 08/25/24 J40 - Bronchitis, not specified as acute or chronic, J45.51 - Severe persistent asthma with (acute) exacerbation, R09.1 - Pleurisy Medications: New azithromycin 500 mg PO DAILY 5 tabs 0RF 5 days Refilled albuterol sulfate 90 mcg/actuation (Ventolin HFA) 2 puffs inhalation QID PRN 18 grams 11RF shortness of breath or wheezing 30 days prednisone PO daily; Take 6 tabs daily x 3 days, then 5 tabs x 3 days, then 4 tabs x 3 days, then 3 tabs x 3 days, then 2 tabs daily x 3 days, then 1 tab x 3 days to complete. 63 tabs 0RF 18 days uyxtfylgtiq-ifkamcjxs-mnsedlyr 200-62.5-25 mcg (Trelegy Ellipta) 1 inh inhalation DAILY 60 ea 12RF 30 days loratadine (Claritin) 10 mg PO DAILY 30 tabs 11RF 30 days J30.2 - Other seasonal allergic rhinitis, J45.909 - Unspecified asthma, uncomplicated montelukast 10 mg PO DAILY 30 tabs 11RF 30 days J45.909 - Unspecified asthma, uncomplicated Coding Level of Care Code Est Pt Level 4 (46433) Diagnoses Severe persistent asthma with acute exacerbation J45.51 Asthma complication type: with acute exacerbation Asthma persistence: persistent Asthma severity: severe Bronchitis J40 Chronic cough R05.3 Cough type: chronic Chest pain, unspecified type R07.9 Chest pain type: unspecified Time Spent (min) 16
[2024-08-25 10:25] VITALS: BP 122/78; PULSE 91; O2SAT 100; BMI 32.3
== END 2024-08-25 10:41 | disposition home or self-care (01) ==
PROVIDERS: PCP Internal Medicine; Visit Provider Hospitalist
DX: J45.51 Severe persistent asthma with (acute) exacerbation (principal); J40 Bronchitis, not specified as acute or chronic; R05.3 Chronic cough; R07.9 Chest pain, unspecified
CPT/HCPCS: 99214